=== PATIENT | female | born 1960 | race Caucasian/White ===

== ENCOUNTER → 2020-05-27 | Outpatient (CLI) | payer BC ==
[2020-05-27 15:53] LABS: ALBUMIN 3.9 gm/dl (3.1-4.5); ALKALINE PHOSPHATASE 83 U/L (45-117); BUN 16 mg/dl (7-24); CHLORIDE 109 mmol/L (98-107); CREATININE 0.92 mg/dL (0.55-1.02); POTASSIUM 3.7 mmol/L (3.5-5.1); SGOT/AST 27 IU/L (3-35); SGPT/ALT 45 U/L (12-78); SODIUM 140 mmol/L (136-145); TOTAL PROTEIN 7.3 gm/dL (6.4-8.2)
== END | disposition home or self-care (01) ==
LOC: LAB 15:00
PROVIDERS: Orthopaedic Surgery
DX: Z79.1 Long term (current) use of non-steroidal anti-inflammatories (NSAID) (principal)

== ENCOUNTER → 2020-10-01 | Outpatient (CLI) | payer BC ==
[2020-10-01 11:26] LABS: BASO # 0.1 10*3/uL (0.0-0.1); BASO % 0.8 % (0.0-1.0); EOS # 0.2 10*3/uL (0.0-0.4); HEMATOCRIT 44.1 % (37.0-47.0); LYMPH # 1.9 10*3/uL (1.3-4.4); LYMPH % 31.2 % (27.0-41.0); MEAN CELL VOLUME 88.7 fl (81.0-99.0); MEAN CORPUSCULAR HGB 28.4 pg (27.0-31.0); MEAN PLATELET VOLUME 10.6 fl (9.6-12.3); MONO # 0.5 10*3/uL (0.1-1.0); MONO % 8.3 % (3.0-9.0); NEUT # 3.3 10*3/uL (2.3-7.9); NEUT % 55.4 % (47.0-73.0); PLATELET COUNT AUTOMATED 257 10*3/uL (130-400); RED BLOOD COUNT 4.97 10*6/uL (4.10-5.10)
[2020-10-02 08:08] LABS: HEP B CORE AB, IGM Negative (Negative); HEPATITIS B SURFACE AG Negative (Negative); HEPATITIS C VIRUS ANTIBODY <0.1 s/co (0.0-0.9)
[2020-10-02 10:07] LABS: RHEUMATOID ARTHRITIS FACTOR <10.0 IU/mL (0.0-13.9)
[2020-10-03 21:05] LABS: CCP ANTIBODIES IGG/IGA 4 units (0-19)
[2020-10-04 12:06] LABS: ANTI-RNP ANTIBODIES <0.2 AI (0.0-0.9)
[2020-10-04 15:06] LABS: LUPUS DRVVT 42.4 sec (0.0-47.0); LUPUS REFLEX INTERPRETATION Comment: (.); PTT-LA 29.3 sec (0.0-51.9)
[2020-10-06 11:07] LABS: HLA-B27 ANTIGEN Negative (.)
== END | disposition home or self-care (01) ==
LOC: LAB 10:45
PROVIDERS: ATTEND Orthopaedic Surgery
DX: M19.90 Unspecified osteoarthritis, unspecified site (principal); M25.562 Pain in left knee; M25.561 Pain in right knee

== ENCOUNTER → 2020-12-27 | Outpatient (CLI) | payer BC ==
[2020-12-27 09:49] LABS: MEAN CELL VOLUME 85.9 fl (81.0-99.0); MEAN CORPUSCULAR HGB 27.5 pg (27.0-31.0); MEAN PLATELET VOLUME 10.5 fl (9.6-12.3); RED BLOOD COUNT 5.24 10*6/uL (4.10-5.10); RED CELL DISTRI WIDTH 13.5 % (0-14.5); WHITE BLOOD COUNT 5.8 10*3/uL (4.8-10.8)
[2020-12-27 09:55] LABS: ACT PARTIAL THROMBO TIME 22.9 SECONDS (20.0-32.1); INTERNATIONAL NORM RATIO 0.9 (2.0-3.5)
[2020-12-27 10:09] LABS: ALBUMIN 3.8 gm/dl (3.1-4.5); BUN 20 mg/dl (7-24); CHLORIDE 111 mmol/L (98-107); POTASSIUM 4.2 mmol/L (3.5-5.1); SODIUM 141 mmol/L (136-145)
[2020-12-27 10:12] LABS: ALKALINE PHOSPHATASE 86 U/L (45-117); CHOLESTEROL 221 mg/dL (<200); CREATININE 0.84 mg/dL (0.55-1.02); HDL CHOLESTEROL 63 mg/dl (40-60); LDL CHOLESTEROL 139 mg/dL (9-159); SGOT/AST 24 IU/L (3-35); SGPT/ALT 61 U/L (12-78); TOTAL PROTEIN 7.7 gm/dL (6.4-8.2); TRIGLYCERIDES 97 mg/dl (<150); VLDL CHOLESTEROL 19 mg/dL (6-40)
== END | disposition home or self-care (01) ==
LOC: LAB 08:52
PROVIDERS: ATTEND Family Medicine
DX: Z01.818 Encounter for other preprocedural examination (principal); M47.814 Spondylosis without myelopathy or radiculopathy, thoracic region; E74.9 Disorder of carbohydrate metabolism, unspecified; E78.00 Pure hypercholesterolemia, unspecified; M17.11 Unilateral primary osteoarthritis, right knee; E66.9 Obesity, unspecified

== ENCOUNTER → 2021-02-02 | Outpatient (CLI) | payer BC | END | disposition home or self-care (01) | LOC: US 11:48 | PROVIDERS: ATTEND Orthopaedic Surgery | DX: G89.18 Other acute postprocedural pain (principal) ==